=== PATIENT | female | born 1965 | race Caucasian/White ===

== ENCOUNTER 2023-03-07 03:41 | Emergency (ER) | payer BC ==
[~2023-03-07] VITALS: Ht 162.6 cm; Wt 49.0 kg
[2023-03-07 03:43] VITALS: BP_SYST 127; PULSE 86; RESP 20; TEMP 98.2; O2SAT 97
[2023-03-07] MEDS ORDERED: NAPR-1172 PO (04:23)
[2023-03-07 04:42] VITALS: BP_SYST 134; PULSE 78; RESP 18; TEMP 98.2; O2SAT 97
== END 2023-03-07 04:39 | disposition home or self-care (01) ==
LOC: SED 03:41
DX: M94.0 Chondrocostal junction syndrome [Tietze] (principal); R07.89 Other chest pain; Z88.8 Allergy status to other drugs, medicaments and biological substances; Z79.899 Other long term (current) drug therapy
CPT/HCPCS: 71045; 93005; 99283